=== PATIENT | male | born 1970 | race Hispanic/Latino ===

== ENCOUNTER 2019-01-14 10:19 | Emergency (ER) | payer BC, OTHER ==
[2019-01-14] MEDS ORDERED: KETOROLAC 30 MG/ML INJ ONE (11:11)
[2019-01-14 11:19] LABS: Absolute Lymphocytes (CBC) 1.9 K/uL (0.7-4.9); Absolute Monocytes 0.6 K/uL (0.1-1.3); Absolute Neutrophil 8.7 K/uL (1.8-8.0); Basophils % 0.7 % (0-1.3); Eosinophils % 0.4 % (0-4.4); Hematocrit 46.9 % (39.6-49.0); Lymphocytes % 16.5 % (15.3-44.8); MPV 9.5 fL (7.6-11.3); Monocytes % 5.6 % (3.3-12.3); RBC Red Blood Cell Count 5.12 M/uL (4.33-5.43)
[2019-01-14] MEDS ORDERED: ONDANSETRON 4 MG/2 ML VIAL ONE (11:23)
[2019-01-14 11:52] LABS: ALT/SGPT 47 U/L (12-78); AST/SGOT 19 U/L (15-37); Albumin 3.8 g/dL (3.4-5.0); Alkaline Phosphatase 120 U/L (45-117); BUN Blood Urea Nitrogen 14 mg/dL (7-18); Bicarbonate 26 mmol/L (21-32); Bilirubin Direct < 0.1 mg/dL (0-0.2); Bilirubin Total 0.5 mg/dL (0.2-1.0); Glucose Level 260 mg/dL (74-106); Lipase 154 U/L (73-393); Sodium Level 137 mmol/L (136-145)
--- NOTE | 2019-01-14 12:30 | RAD REPORT ---
EXAM DESCRIPTION: CTAbdomen Pelvis W Contrast - 01/14/2019 12:20 pm CLINICAL HISTORY: Abdominal pain. Abd pain;Constipation COMPARISON: Abdomen Pelvis W Contrast dated 04/25/2017; Abdomen Pelvis W Contrast dated 02/04/2017; CT ABD PELVIS W CONTRAST dated 11/04/2015; CT ABD PELVIS W CONTRAST dated 11/26/2014 TECHNIQUE: Biphasic CT imaging of the abdomen and pelvis was performed with 100 ml non-ionic IV cont rast. All CT scans are performed using dose optimization technique as appropriate and may include automated exposure control or mA/KV adjustment according to patient size. FINDINGS: The lung bases are clear.Mild bilateral gynecomastia. Diffuse fatty liver is present. The spleen, pancreas, adrenal glands and kidneys are within normal li mits. No bowel obstruction, free air, free fluid or abscess. Colonic diverticulosis without diverticulitis. The appendix is normal. No evidence of significant lymphadenopathy. Prominent L5-S1 degenerative change with vacuum disc degeneration and posterior disc bulge. Minimal a nterolisthesis also present with chronic bilateral spondylolysis. IMPRESSION: Diffuse fatty liver. Diverticulosis without diverticulitis. Moderate L5-S1 degenerative changes.
[2019-01-14 12:59] LABS: Urine Blood TRACE (NEG); Urine Glucose 2+ (NEG); Urine Protein 2+ (NEG); Urine Specific Gravity 1.015 (1.005-1.030)
[2019-01-14] MEDS ORDERED: HYDROCODONE/APAP 5/325 MG TAB ONE (13:58)
--- NOTE | 2019-01-14 14:06 | EDPHYS ---
Physician Documentation [facility] Name: Kevin Bishop Age: 48 yrs Sex: Male : 1970 Arrival Date: 01/14/2019 Time: 10:26 Bed 5 Private MD: None, None ED Physician Cesar Ralph HPI: 01/14 11:00 This 48 yrs old Male presents to ER via Ambulatory with complaints of pm1 Abdominal Pain. 11:00 The patient presents with abdominal pain in the upper abdomen. Onset: The pm1 symptoms/episode began/occurred 2 day(s) ago. The symptoms do not radiate. Associated signs and symptoms: Pertinent positives: constipation, nausea, Pertinent negatives: chest pain, diarrhea, dysuria, fever, shortness of breath. The symptoms are described as achy. Modifying factors: The symptoms are alleviated by nothing, the symptoms are aggravated by nothing. Severity of pain: in the emergency department the pain is actually worse. The patient has not experienced similar symptoms in the past. The patient has not recently seen a physician. 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 - Social history:: Smoking status: . - Ebola Screening: : Patient denies travel to an Ebola-affected area in the 21 days before illness onset. ROS: 11:00 Constitutional: Negative for fever, chills, and weight loss, Eyes: Negative for injury, pm1 pain, redness, and discharge, ENT: Negative for injury, pain, and discharge, Neck: Negative for injury, pain, and swelling, Cardiovascular: Negative for chest pain, palpitations, and edema, Respiratory: Negative for shortness of breath, cough, wheezing, and pleuritic chest pain. 11:00 : Negative for injury, bleeding, discharge, and swelling, MS/Extremity: Negative for injury and deformity, Skin: Negative for injury, rash, and discoloration, Neuro: Negative for headache, weakness, numbness, tingling, and seizure. 11:00 Abdomen/GI: Positive for abdominal pain, nausea, constipation, Negative for vomiting, diarrhea. 11:00 Back: Positive for flank pain, on the right. Exam: 11:00 Constitutional: This is a well developed, well nourished patient who is awake, alert, pm1 and in no acute distress. Head/Face: Normocephalic, atraumatic. Eyes: Pupils equal round and reactive to light, extra-ocular motions intact. Lids and lashes normal. Conjunctiva and sclera are non-icteric and not injected. Cornea within normal limits. Periorbital areas with no swelling, redness, or edema. ENT: Nares patent. No nasal discharge, no septal abnormalities noted. Tympanic membranes are normal and external auditory canals are clear. Oropharynx with no redness, swelling, or masses, exudates, or evidence of obstruction, uvula midline. Mucous membranes moist. Neck: Trachea midline, no thyromegaly or masses palpated, and no cervical lymphadenopathy. Supple, full range of motion without nuchal rigidity, or vertebral point tenderness. No Meningismus. Chest/axilla: Normal chest wall appearance and motion. Nontender with no deformity. No lesions are appreciated. Cardiovascular: Regular rate and rhythm with a normal S1 and S2. No gallops, murmurs, or rubs. Normal PMI, no JVD. No pulse deficits. Respiratory: Lungs have equal breath sounds bilaterally, clear to auscultation and percussion. No rales, rhonchi or wheezes noted. No increased work of breathing, no retractions or nasal flaring. 11:00 Back: No spinal tenderness. No costovertebral tenderness. Full range of motion. Skin: Warm, dry with normal turgor. Normal color with no rashes, no lesions, and no evidence of cellulitis. MS/ Extremity: Pulses equal, no cyanosis. Neurovascular intact. Full, normal range of motion. 11:00 Abdomen/GI: Inspection: obese Bowel sounds: normal, in all quadrants, Palpation: abdomen is soft and non-tender, mass, is not appreciated, rebound tenderness, is not appreciated. 11:00 Neuro: Orientation: is normal, Motor: is normal, moves all fours. Vital Signs: 10:27 BP 137 / 84; Pulse 95; Resp 17; Temp 98.2(O); Pulse Ox 97% on R/A; Weight 79.38 kg (R); tw2 Pain 09/03; 11:37 BP 130 / 67; Pulse 53; Resp 12; Pulse Ox 96% on R/A; aj1 13:37 BP 131 / 91; Pulse 80; Resp 18; Pulse Ox 98% on R/A; aj1 14:44 BP 137 / 92; Pulse 72; Resp 18; Pulse Ox 99% on R/A; aj1 MDM: 10:35 Patient medically screened. pm1 13:25 Data reviewed: vital signs. Data interpreted: Pulse oximetry: on room air is 96 %. pm1 Interpretation: normal. Counseling: I had a detailed discussion with the patient and/or guardian regarding:. 14:04 Counseling: I had a detailed discussion with the patient and/or guardian regarding: the pm1 historical points, exam findings, and any diagnostic results supporting the discharge/admit diagnosis, lab results, radiology results, the need for outpatient follow up, for definitive care, a bench assembler battery, to return to the emergency department if symptoms worsen or persist or if there are any questions or concerns that arise at home. 14:25 ED course: GI cocktail resolved the patient's pain. pm1 01/14 10:48 Order name: Basic Metabolic Panel; Complete Time: 12:03 pm01/14 10:48 Order name: CBC with Diff; Complete Time: 11:39 pm01/14 10:48 Order name: Creatinine for Radiology; Complete Time: 11:44 pm01/14 10:48 Order name: Hepatic Function; Complete Time: 12:03 pm01/14 10:48 Order name: Lipase; Complete Time: 12:03 pm01/14 12:48 Order name: Urine Dipstick--Ancillary (enter results); Complete Time: 13:11 iw 01/14 10:48 Order name: IV Saline Lock; Complete Time: 11:05 pm01/14 10:48 Order name: Labs collected and sent; Complete Time: 11:06 pm01/14 10:48 Order name: Urine Dipstick-Ancillary (obtain specimen); Complete Time: 12:48 pm01/14 11:00 Order name: CT Abd/Pelvis - W/Contrast: IV contrast only; Complete Time: 12:39 pm1 Administered Medications: 11:05 Drug: TORadol 30 mg Route: IVP; Site: right forearm; aj1 12:00 Follow up: Response: No adverse reaction aj1 11:15 Drug: Zofran 4 mg Route: IVP; Site: left forearm; aj1 12:00 Follow up: Response: No adverse reaction aj1 13:51 Drug: [place] 5 mg-325 mg 1 tabs Route: PO; aj1 14:45 Follow up: Response: No adverse reaction aj1 14:18 Drug: GI Cocktail without - (Maalox Suspension 30 ml, Lidocaine Liquid 2 % 15 aj1 ml) Route: PO; 14:45 Follow up: Response: No adverse reaction; Pain is decreased aj1 Disposition: 18:50 Co-signature as Attending Physician, Cesar Ralph MD Available for consultation at ps1 all times. . Disposition: 01/14/19 14:05 Discharged to Home. Impression: Unspecified abdominal pain. - Condition is Stable. - Discharge Instructions: Abdominal Pain, Adult. - Prescriptions for Bentyl 20 mg Oral Tablet - take 1 tablet by ORAL route every 6 hours As needed; 20 tablet. Pepcid 20 mg Oral Tablet - take 1 tablet by ORAL route every 12 hours for 10 days; 20 tablet. Zofran 4 mg Oral Tablet - take 1 tablet by ORAL route every 12 hours As needed; 20 tablet. - Medication Reconciliation Form, Thank You Letter, Antibiotic Education, Prescription Opioid Use form. - Follow up: Emergency Department; When: As needed; Reason: Worsening of condition. Follow up: Private Physician; When: 2 - 3 days; Reason: Recheck today's complaints, Continuance of care, Re-evaluation by your physician. - Problem is new. - Symptoms have improved. Signatures: Dispatcher [employer] EDAL Ginny Narvaez RN RN aj1 Giovany Short NP DIRECTOR OF LABOR RELATIONS pm1 Zena Arteaga RN RN tw2 Cesar Ralph MD MD ps1 Corrections: (The following items were deleted from the chart) 14:47 14:05 01/14/2019 14:05 Discharged to Home. Impression: Unspecified abdominal pain. aj1 Condition is Stable. Forms are Medication Reconciliation Form, Thank You Letter, Antibiotic Education, Prescription Opioid Use. Follow up: Emergency Department; When: As needed; Reason: Worsening of condition. Follow up: Private Physician; When: 2 - 3 days; Reason: Recheck today's complaints, Continuance of care, Re-evaluation by your physician. Problem is new. Symptoms have improved. pm1
--- NOTE | 2019-01-14 14:06 | ER ---
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 Transition of care: patient was not received from another setting of care. Onset of symptoms was January 14, 2019. Risk Assessment: Do you want to hurt yourself or someone else? Patient reports no desire to harm self or others. Initial Sepsis Screen: Does the patient meet any 2 criteria? No. Patient's initial sepsis screen is negative. Does the patient have a suspected source of infection? No. Patient's initial sepsis screen is negative. Care prior to arrival: None. 10:28 Method Of Arrival: Ambulatory tw2 10:28 Acuity: QUINCY 3 tw2 Triage Assessment: 10:30 General: Appears in no apparent distress. Behavior is calm, cooperative, appropriate tw2 for age. Pain: Complains of pain in abdomen. GI: Parent/caregiver reports the patient having nausea, pain. 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 - Social history:: Smoking status: . - Ebola Screening: : Patient denies travel to an Ebola-affected area in the 21 days before illness onset. Screenin:45 Abuse screen: Denies threats or abuse. Denies injuries from another. Nutritional aj1 screening: No deficits noted. Tuberculosis screening: No symptoms or risk factors identified. 14:47 Fall Risk None identified. aj1 Assessment: 10:45 General: Appears in no apparent distress. uncomfortable, Behavior is calm, cooperative, aj1 appropriate for age. Pain: Complains of pain in right subscapular area, abdomen and neck Pain does not radiate. Pain currently is 10 out of 10 on a pain scale. Quality of pain is described as burning, Pain began 2-3 days ago. Neuro: Level of Consciousness is awake, alert, obeys commands, Oriented to person, place, time, situation. Cardiovascular: Patient's skin is warm and dry. Respiratory: Airway is patent Respiratory effort is even, unlabored, Respiratory pattern is regular, symmetrical. GI: Abdomen is round Bowel sounds present X 4 quads. Abd is soft X 4 quads Abdomen is tender to palpation in right lower quadrant and left lower quadrant Reports constipation, nausea, Patient currently denies diarrhea, vomiting. : No signs and/or symptoms were reported regarding the genitourinary system. EENT: No signs and/or symptoms were reported regarding the EENT system. Derm: No signs and/or symptoms reported regarding the dermatologic system. Skin is pink, warm \T\ dry. normal. Musculoskeletal: No signs and/or symptoms reported regarding the musculoskeletal system. Circulation, motion, and sensation intact. 11:37 Reassessment: Patient appears in no apparent distress at this time. No changes from aj1 previously documented assessment. Patient and/or family updated on plan of care and expected duration. Pain level reassessed. Patient is alert, oriented x 3, equal unlabored respirations, skin warm/dry/pink. 12:30 Reassessment: Patient and/or family updated on plan of care and expected duration. Pain aj1 level reassessed. General: Appears in no apparent distress. uncomfortable, Behavior is calm, cooperative, appropriate for age. Neuro: Level of Consciousness is awake, alert, obeys commands, Oriented to person, place, time, situation. Cardiovascular: Patient's skin is warm and dry. Respiratory: Airway is patent Respiratory effort is even, unlabored, Respiratory pattern is regular, symmetrical. Derm: No signs and/or symptoms reported regarding the dermatologic system. Skin is pink, warm \T\ dry. normal. Musculoskeletal: No signs and/or symptoms reported regarding the musculoskeletal system. Circulation, motion, and sensation intact. 13:36 Reassessment: Patient states that he is still having pain and would like something else aj1 for the pain. Notified Urvashi Short NP. 14:43 Reassessment: Patient appears in no apparent distress at this time. No changes from aj1 previously documented assessment. Patient and/or family updated on plan of care and expected duration. Pain level reassessed. Patient is alert, oriented x 3, equal unlabored respirations, skin warm/dry/pink. Vital Signs: 10:27 BP 137 / 84; Pulse 95; Resp 17; Temp 98.2(O); Pulse Ox 97% on R/A; Weight 79.38 kg (R); tw2 Pain 10/10; 11:37 BP 130 / 67; Pulse 53; Resp 12; Pulse Ox 96% on R/A; aj1 13:37 BP 131 / 91; Pulse 80; Resp 18; Pulse Ox 98% on R/A; aj1 14:44 BP 137 / 92; Pulse 72; Resp 18; Pulse Ox 99% on R/A; aj1 ED Course: 10:26 Patient arrived in ED. mr 10:26 None, None is Private Physician. mr 10:29 Triage completed. tw2 10:30 Arm band placed on. tw2 10:32 Ginny Narvaez, RAUDEL is Primary Nurse. aj1 10:35 Giovany Short NP is PHCP. pm1 10:35 Cesar Ralph MD is Attending Physician. pm1 10:45 Patient has correct armband on for positive identification. Bed in low position. Call aj1 light in reach. Side rails up X 1. 10:45 No provider procedures requiring assistance completed. aj1 11:03 Inserted saline lock: 20 gauge in right forearm, using aseptic technique. ,using aj1 aseptic technique. by Urvashi Vaughn student nurse Blood collected. 12:18 CT completed. Patient tolerated procedure well. Patient moved to CT via wheelchair. Patient moved back from CT. 12:28 CT Abd/Pelvis - W/Contrast: IV contrast only In Process Unspecified. EDMS 14:45 IV discontinued, intact, bleeding controlled, No redness/swelling at site. Pressure aj1 dressing applied. Administered Medications: 11:05 Drug: TORadol 30 mg Route: IVP; Site: right forearm; aj1 12:00 Follow up: Response: No adverse reaction aj1 11:15 Drug: Zofran 4 mg Route: IVP; Site: left forearm; aj1 12:00 Follow up: Response: No adverse reaction aj1 13:51 Drug: [place] 5 mg-325 mg 1 tabs Route: PO; aj1 14:45 Follow up: Response: No adverse reaction aj1 14:18 Drug: GI Cocktail without - (Maalox Suspension 30 ml, Lidocaine Liquid 2 % 15 aj1 ml) Route: PO; 14:45 Follow up: Response: No adverse reaction; Pain is decreased aj1 Outcome: 14:05 Discharge ordered by . pm1 14:46 Discharged to home ambulatory. aj1 14:46 Condition: good 14:46 Discharge instructions given to patient, family, Instructed on discharge instructions, follow up and referral plans. medication usage, Demonstrated understanding of instructions, follow-up care, medications, Prescriptions given X 3. 14:47 Patient left the ED. aj1 Signatures: Dispatcher [employer] EDMS Ginny Narvaez, RN RN aj1 Hays, Shaylee mr Rosenbaum, Giovany Zuñiga, PASHA STEAM T[employer]NEL FEEDER pm1 Zena Arteaga RN RN tw2 Corrections: (The following items were deleted from the chart) 10:33 10:27 BP 137 / 84; Pulse 95bpm; Resp 17bpm; Temp 98.2F Oral; tw2 tw2 11:25 11:24 Inserted saline lock: 20 gauge in right forearm, using aseptic technique. ,using aj1 aseptic technique. by Urvashi Vaughn, student nurse Blood collected. aj1
[2019-01-14] MEDS ORDERED: LIDOCAINE VISCOUS 2% SOLN 15 ML UDC ONE (14:22)
[2019-01-14] MEDS ORDERED: MAGNE/ALUM HYDROXD 30 ML UCUP ONE (14:22)
== END 2019-01-14 14:47 | disposition home or self-care (01) ==
LOC: ER 10:19
DX: R10.10 Upper abdominal pain, unspecified (principal); E11.9 Type 2 diabetes mellitus without complications; Z79.84 Long term (current) use of oral hypoglycemic drugs
CPT/HCPCS: 36415; 74177; 80048; 80076; 81003; 83690; 85025; 99284; J2405; Q9967

== ENCOUNTER 2022-10-19 13:48 | Emergency (ER) | payer BC, OTHER ==
--- NOTE | 2022-10-19 14:31 | EDPHYS ---
Physician Documentation [facility] Name: Kevin Mejia Age: 52 yrs Sex: Male : 1970 Arrival Date: 10/19/2022 Time: 13:51 Bed DIS2 Private MD: ED Physician Baldo Maharaj HPI: 10/19 14:24 This 52 yrs old Male presents to ER via Ambulatory with complaints of Lips cp Swelling. 14:24 The patient presents with pain, swelling. The problem is located in the left side lower cp lip. Onset: The symptoms/episode began/occurred 1 week(s) ago. Duration: The symptoms are continuous, and are steadily getting worse. Associated signs and symptoms: Pertinent negatives: dysphagia, fever, sore throat. Historical: - Allergies: 14:02 No Known Drug Allergies; hb - Home Meds: 14:02 metformin 1,000 mg Oral tab [Active]; hb - PMHx: 14:02 Diabetes - NIDDM; hb - Immunization history:: Adult Immunizations unknown. - Social history:: Smoking status: unknown. ROS: 14:26 Eyes: Negative for injury, pain, redness, and discharge. cp 14:26 Constitutional: Negative for body aches, chills, fever, poor PO intake. 14:26 ENT: Negative for drainage from ear(s), ear pain, sore throat, difficulty swallowing, difficulty handling secretions. 14:26 Respiratory: Negative for cough, shortness of breath, wheezing. 14:26 Skin: Positive for swelling, of the left side lower lip. Exam: 14:27 Head/Face: Normocephalic, atraumatic. cp 14:27 Constitutional: The patient appears in no acute distress, alert, awake, non-toxic, well developed, well nourished. 14:27 ENT: External ear(s): are unremarkable, Nose: is normal, Mouth: Oral mucosa: moist, Tongue: is normal, Posterior pharynx: Airway: no evidence of obstruction, patent, erythema, is not appreciated, exudate, is not appreciated, Voice: is normal. 14:27 Skin: mild swelling, mild erythema, tenderness noted to left side lower lip. Vital Signs: 13:59 BP 152 / 81; Pulse 92; Resp 16; Temp 98.1; Pulse Ox 97% ; Weight 79.38 kg; Height 5 ft. hb (152.40 cm); Pain 10/10; 13:59 Body Mass Index 34.18 (79.38 kg, 152.40 cm) hb MDM: 14:30 Patient medically screened. cp Administered Medications: No medications were administered Disposition Summary: 10/19/22 14:30 Discharge Ordered Location: Home cp Problem: new cp Symptoms: are unchanged cp Condition: Stable cp Diagnosis - Cellulitis of face - lower lip cp Followup: cp - With: Private Physician - When: 1 - 2 days - Reason: Worsening of condition Discharge Instructions: - Discharge Summary Sheet cp - Cellulitis, Adult cp Forms: - Medication Reconciliation Form cp - Thank You Letter cp - Antibiotic Education cp - Prescription Opioid Use cp Prescriptions: - Clindamycin HCl 300 mg Oral Capsule - take 1 capsule by ORAL route every 6 hours for 10 days; 40 capsule; Refills: 0, cp Product Selection Permitted - Ibuprofen 800 mg Oral Tablet - take 1 tablet by ORAL route every 8 hours As needed take with food; 30 tablet; cp Refills: 0, Product Selection Permitted Signatures: Maria Luisa Nunez, RN RN Baldo Myles, MOI PA cp Serenity Schneider, RN RN hb
--- NOTE | 2022-10-19 14:31 | ER ---
Nurse's Notes [facility] Name: Kevin Mejia Age: 52 yrs Sex: Male : 1970 Arrival Date: 10/19/2022 Time: 13:51 Bed DIS2 Private MD: Diagnosis: Cellulitis of face-lower lip Presentation: 10/19 13:59 Chief complaint: Painful sore on lower lip x 1 week. Coronavirus screen: At this time, hb the client does not indicate any symptoms associated with coronavirus-19. Ebola Screen: No symptoms or risks identified at this time. Initial Sepsis Screen: Does the patient meet any 2 criteria? No. Patient's initial sepsis screen is negative. Does the patient have a suspected source of infection? No. Patient's initial sepsis screen is negative. Risk Assessment: Do you want to hurt yourself or someone else? Patient reports no desire to harm self or others. Onset of symptoms was October 22, 2022. 13:59 Acuity: QUINCY 4 hb 13:59 Method Of Arrival: Ambulatory hb Historical: - Allergies: 14:02 No Known Drug Allergies; hb - Home Meds: 14:02 metformin 1,000 mg Oral tab [Active]; hb - PMHx: 14:02 Diabetes - NIDDM; hb - Immunization history:: Adult Immunizations unknown. - Social history:: Smoking status: unknown. Assessment: 14:32 General: Appears in no apparent distress. comfortable, Behavior is calm, cooperative. ss Pain: Complains of pain in lower lip Pain currently is 10 out of 10 on a pain scale. Quality of pain is described as tender. Neuro: Level of Consciousness is awake, alert. Cardiovascular: Capillary refill < 3 seconds is brisk in bilateral fingers Patient's skin is warm and dry. Respiratory: Airway is patent Respiratory effort is even, unlabored, Respiratory pattern is regular, symmetrical. GI: No signs and/or symptoms were reported involving the gastrointestinal system. Derm: Skin is intact, is healthy with good turgor, Skin is Skin is pink, warm \T\ dry. normal. Musculoskeletal: Circulation, motion, and sensation intact. Range of motion: intact in all extremities, Swelling present in lower lip. Vital Signs: 13:59 BP 152 / 81; Pulse 92; Resp 16; Temp 98.1; Pulse Ox 97% ; Weight 79.38 kg; Height 5 ft. hb (152.40 cm); Pain 10/10; 13:59 Body Mass Index 34.18 (79.38 kg, 152.40 cm) hb ED Course: 13:51 Patient arrived in ED. as 13:57 Baldo Myles PA is PHCP. cp 13:57 Baldo Maharaj MD is Attending Physician. cp 14:02 Triage completed. hb 14:02 Arm band placed on. hb 14:56 Maria Luisa Nunez, RN is Primary Nurse. ss 14:56 No provider procedures requiring assistance completed. Patient did not have IV access ss during this emergency room visit. Administered Medications: No medications were administered Medication: 14:32 VIS not applicable for this client. ss Outcome: 14:30 Discharge ordered by . cp 14:56 Discharged to home ambulatory. ss 14:56 Condition: good 14:56 Discharge instructions given to patient, family, Instructed on discharge instructions, follow up and referral plans. medication usage, Demonstrated understanding of instructions, follow-up care, medications, Prescriptions given X 2. 14:56 Patient left the ED. ss Signatures: Samreen Flower as Maria Luisa Nunez, RN RN Baldo Myles PA PA cp Baxter, Heather, RN RN
[2022-10-19 15:32] VITALS: BP 152/81; TEMP 98.1; O2SAT 97
== END 2022-10-19 14:56 | disposition home or self-care (01) ==
LOC: ER 13:48
DX: K13.0 Diseases of lips (principal); E11.9 Type 2 diabetes mellitus without complications
CPT/HCPCS: 99282